=== PATIENT | male | born 1960 | race Caucasian/White ===

== ENCOUNTER 2019-01-01 10:15 | Emergency (ER) | payer MEDICAID ==
[~2019-01-01] VITALS: Ht 172.7 cm; Wt 63.5 kg
[2019-01-01] MEDS ORDERED: LISINOPRIL20 MG PO (10:34)
[2019-01-01] MEDS ORDERED: AMLODIPINE BESY10 MG PO (10:35)
[2019-01-01] MEDS ORDERED: NEURONTIN600 MG PO (10:35)
[2019-01-01] MEDS ORDERED: XANAX XR2 MG PO (10:35)
[2019-01-01] MEDS ORDERED: OXYCONTIN40 MG PO (10:36)
[2019-01-01] MEDS ORDERED: PERCOCET 10-321 EACH PO (10:36)
[2019-01-01] MEDS ORDERED: FENTANYL PATCH75 MCG TRANSDERM (10:36)
[2019-01-01 11:11] LABS: ABSOLUTE EOSINOPHILS 0.3 thou/uL (0.0-0.7); ABSOLUTE LYMPHOCYTES 2.2 thou/uL (0.8-5.3); ABSOLUTE MONOCYTES 0.6 thou/uL (0.0-1.2); BASOPHILS 0.3 %; EOSINOPHILS 2.4 %; HEMATOCRIT 32.6 % (42.0-52.0); HEMOGLOBIN 10.7 gm/dL (14.0-18.0); LYMPHOCYTES 19.9 %; MCH 29.7 pg (26.0-34.0); MCHC 32.7 g/dL (28.0-37.0); MCV 90.9 fL (80.0-100.0); MONOCYTES 5.1 %; MPV 6.5 fl. (7.2-11.1); NUCLEATED RBCS 0 /100WBC; PLATELET COUNT* 510 thou/uL (150-400); POLYS 72.3 %; RBC 3.59 mil/uL (4.50-6.00); RDW-CV 14.8 % (10.5-14.5); WBC 11.1 thou/uL (4.0-11.0)
[2019-01-01 11:17] LABS: ANION GAP 7 mmol/L (7-16); BUN 23 mg/dL (7-18); CALCIUM 8.5 mg/dL (8.5-10.1); CHLORIDE 108 mmol/L (98-107); CO2 28 mmol/L (21-32); GLUCOSE 92 mg/dL (70-99); POTASSIUM 3.9 mmol/L (3.5-5.1); SODIUM 143 mmol/L (136-145)
[2019-01-01 11:29] LABS: ALBUMIN 2.6 g/dL (3.4-5.0); ALKALINE PHOSPHATASE 103 U/L (46-116); CK-MB MASS 0.6 ng/mL (<0.5-3.6); LIPASE 138 U/L (73-393); MAGNESIUM 2.1 mg/dL (1.8-2.4); NT-PRO BRAIN NAT PEPTIDE 74 pg/mL (<300); SGOT 12 U/L (15-37); SGPT 25 U/L (30-65); TOTAL BILIRUBIN 0.2 mg/dL (<0.1-1.0); TOTAL PROTEIN 6.7 g/dL (6.4-8.2); TROPONIN-I LEVEL <0.06 ng/mL (<0.06)
[2019-01-01 11:37] LABS: APTT 25.2 Seconds (25.0-31.3)
[2019-01-01 15:16] VITALS: BP 136/79
--- NOTE | 2019-01-01 16:27 | EKG ---
[place] [address] ELECTROCARDIOGRAM REPORT Name: KIMBERLY CORRALES [id number] Admission: 01/01/19 Attend Phys: Discharge: 01/01/19 Date of : 62 Report #: [id number] THIS REPORT FOR: //name// [facility] ED Test Date: 2019-01-01 Test Time: 10:21:07 Pat Name: KIMBERLY CORRALES Department: Room: Gender: Occupational Hygienist: MANUELITO : 1960 Requested By: Eb Hall Order Number: [id number] MD: Cb Saul Measurements Intervals [place] Rate: 68 P: 74 IL: 116 QRS: 60 QRSD: 101 T: 69 QT: 422 QTc: 449 Interpretive Statements Sinus rhythm Borderline short [place] interval Probable left atrial enlargement No previous ECG available for comparison Electronically Signed On 01-01-2019 16:27:05 CDT by Cb Saul [email or web address] <ELECTRONICALLY SIGNED> By: Cb Saul MD, [facility] 01/01/19 1627 1021 1021 Cb Saul MD, FACC /EPI
== END 2019-01-01 15:30 | disposition short-term general hospital (02) ==
LOC: M.ERS 10:15
PROVIDERS: Family Medicine
DX: J18.9 Pneumonia, unspecified organism (principal); G89.29 Other chronic pain; R19.7 Diarrhea, unspecified; R15.9 Full incontinence of feces; F17.200 Nicotine dependence, unspecified, uncomplicated; J44.9 Chronic obstructive pulmonary disease, unspecified; M48.00 Spinal stenosis, site unspecified; Z90.89 Acquired absence of other organs; Z88.5 Allergy status to narcotic agent